=== PATIENT | male | born 1985 | race Caucasian/White ===

== ENCOUNTER 2016-09-15 10:00 | Day surgery (SDC) | payer MEDICAID ==
[~2016-09-15] VITALS: Ht 182.9 cm; Wt 81.0 kg
[~2016-09-15 10:00] MED LIST: BUPR-86 PO; DOXY100C15 PO; MESA500C PO; NA P133E5 RC; OMEP10CA4 PO; OMEP40CA6 PO; SUCR1TAB PO; TRAM50TA2 PO
[2016-09-15 10:45] VITALS: BP 147/88
[2016-09-15] MEDS ORDERED: LACTATED RINGERS 1,000 ML IV SCH (10:45)
[2016-09-15] MEDS ORDERED: PROPOFOL 10 MG/ML, 50ML ONE (12:16)
[2016-09-15] MEDS ORDERED: ACETAMINOPHEN 325 MG TABLET ONE (13:46)
[2016-09-15] MEDS ORDERED: ACETAMINOPHEN 325 MG TABLET PO ONE (14:00)
== END 2016-09-15 14:40 | disposition home or self-care (01) ==
LOC: OUT 10:00
PROVIDERS: ATTEND Internal Medicine Geriatric Medicine
DX: D12.3 Benign neoplasm of transverse colon (principal); K63.5 Polyp of colon; K52.9 Noninfective gastroenteritis and colitis, unspecified; K21.9 Gastro-esophageal reflux disease without esophagitis; K62.6 Ulcer of anus and rectum; M19.90 Unspecified osteoarthritis, unspecified site; F17.210 Nicotine dependence, cigarettes, uncomplicated
CPT/HCPCS: 45380; 45391; 88305; J2704; J7120

== ENCOUNTER 2016-10-10 16:59 | Emergency (ER) | payer MEDICAID ==
[~2016-10-10] VITALS: Ht 182.9 cm; Wt 84.2 kg
[2016-10-10] MEDS ORDERED: ONDANSETRON 2MG/ML, 2ML IVPush ONE (17:30)
[2016-10-10] MEDS ORDERED: MORPHINE SULFATE 4 MG/ML, 1ML IVPush PRN (17:30)
[2016-10-10] MEDS ORDERED: SODIUM CHLORIDE FLUSH 10ML SYR IVF ONE (17:30)
[2016-10-10] MEDS ORDERED: SODIUM CHLORIDE 0.9% 1,000ML IVBOLUS ONE (17:30)
[2016-10-10] MEDS ORDERED: MORPHINE SULFATE 4 MG/ML, 1ML ONE (17:54)
[2016-10-10] MEDS ORDERED: ONDANSETRON 2MG/ML, 2ML ONE (17:54)
[2016-10-10 17:57] LABS: HEMOGLOBIN 17.5 g/dL (13.7-18.0)
[2016-10-10 18:03] LABS: ASPARTATE AMINO TRANSFERASE 18 U/L (15-37); BLOOD UREA NITROGEN 13 mg/dL (7-18)
[2016-10-10] MEDS ORDERED: MESA0.37 PO (18:21)
[2016-10-10] MEDS ORDERED: AMIT25TA PO (18:21)
[2016-10-10] MEDS ORDERED: OMNIPAQUE 350 MG/ML, 100ML BOTTLE ONE (18:30)
[2016-10-10] MEDS ORDERED: HYDROmorphone 1 MG/ML, 1ML ONE (19:25)
[2016-10-10] MEDS ORDERED: HYDROmorphone 2 MG/ML, 1ML IVPush ONE (19:30)
[2016-10-10 20:01] VITALS: BP 128/90
[2016-10-13] MEDS ORDERED: HYDR-3240 PO (11:12)
[2016-10-13] MEDS ORDERED: ONDA4TAB10 PO (11:12)
== END 2016-10-10 20:04 | disposition home or self-care (01) ==
LOC: ED 19:55
DX: K51.90 Ulcerative colitis, unspecified, without complications (principal); K21.9 Gastro-esophageal reflux disease without esophagitis
CPT/HCPCS: 36415; 74177; 80053; 81003; 83690; 85025; 93005; 96361; 96374; 96375; 99285; J1170; J2405; J7030; Q9967

== ENCOUNTER 2016-10-12 09:30 | Emergency (ER) | payer MEDICAID ==
[~2016-10-12] VITALS: Ht 182.9 cm; Wt 83.6 kg
[~2016-10-12 09:30] MED LIST changes: +AMIT25TA PO; +MESA0.37 PO
[2016-10-12] MEDS ORDERED: SODIUM CHLORIDE 0.9% 1,000 ML IV ONE (09:52)
[2016-10-12] MEDS ORDERED: HYDROmorphone 1 MG/ML, 1ML ONE ×2 (09:58→11:12)
[2016-10-12] MEDS ORDERED: ONDANSETRON 2MG/ML, 2ML ONE (09:58)
[2016-10-12] MEDS ORDERED: SODIUM CHLORIDE 0.9% 1,000ML IVBOLUS ONE (10:00)
[2016-10-12] MEDS ORDERED: SODIUM CHLORIDE FLUSH 10ML SYR IVF ONE (10:00)
[2016-10-12] MEDS ORDERED: ONDANSETRON 2MG/ML, 2ML IVPush ONE (10:00)
[2016-10-12] MEDS: HYDROmorphone 1 MG/ML, 1ML IVPush PRN ×2 (10:14→11:16)
[2016-10-12 10:32] LABS: HEMOGLOBIN 17.7 g/dL (13.7-18.0)
[2016-10-12 10:42] LABS: ASPARTATE AMINO TRANSFERASE 22 U/L (15-37); BLOOD UREA NITROGEN 14 mg/dL (7-18)
[2016-10-12 12:00] VITALS: BP 145/91
[2016-10-13] MEDS ORDERED: ONDA4TAB10 PO (11:12)
[2016-10-13] MEDS ORDERED: HYDR-3240 PO (11:12)
[2016-10-15] MEDS ORDERED: NICO1PAT5 TD (07:00)
[2016-10-15] MEDS ORDERED: SUCR1ORA2 PO (07:00)
[2016-10-15] MEDS ORDERED: PRED10TA PO (07:00)
[2016-10-15] MEDS ORDERED: ONDA4TAB10 PO (07:17)
== END 2016-10-12 12:10 | disposition home or self-care (01) ==
LOC: ED 12:04
DX: K51.90 Ulcerative colitis, unspecified, without complications (principal); R10.84 Generalized abdominal pain; G89.29 Other chronic pain; K21.9 Gastro-esophageal reflux disease without esophagitis; F17.200 Nicotine dependence, unspecified, uncomplicated; F12.10 Cannabis abuse, uncomplicated
CPT/HCPCS: 36415; 80053; 81003; 83605; 83690; 85025; 96361; 96374; 96375; 96376; 99284; J1170; J2405; J7030

== ENCOUNTER 2016-10-21 17:36 | Emergency (ER) | payer MEDICAID ==
[~2016-10-21] VITALS: Ht 182.9 cm; Wt 83.9 kg
[~2016-10-21 17:36] MED LIST changes: +HYDR-3240 PO; +NICO1PAT5 TD; +ONDA4TAB10 PO; +PRED10TA PO; +SUCR1ORA2 PO
[2016-10-21] MEDS ORDERED: ASPIRIN 325 MG TABLET PO ONE (18:30)
[2016-10-21] MEDS ORDERED: SODIUM CHLORIDE FLUSH 10ML SYR IVF ONE (18:30)
[2016-10-21] MEDS ORDERED: SODIUM CHLORIDE 0.9% 1,000ML IVBOLUS ONE (18:30)
[2016-10-21] MEDS ORDERED: ASPIRIN 325 MG TABLET ONE (18:38)
[2016-10-21 18:41] LABS: HEMOGLOBIN 17.4 g/dL (13.7-18.0)
[2016-10-21] MEDS ORDERED: ONDANSETRON 2MG/ML, 2ML ONE (18:46)
[2016-10-21 18:54] LABS: ASPARTATE AMINO TRANSFERASE 10 U/L (15-37); BLOOD UREA NITROGEN 15 mg/dL (7-18)
[2016-10-21] MEDS ORDERED: ONDANSETRON 2MG/ML, 2ML IVPush ONE (19:00)
[2016-10-21 19:06] LABS: IS PT STATUS REG ER OR PRE ER? YES
[2016-10-21 19:55] VITALS: BP 135/87
== END 2016-10-21 19:57 | disposition home or self-care (01) ==
LOC: ED 19:54
DX: R00.0 Tachycardia, unspecified (principal); Z88.2 Allergy status to sulfonamides
CPT/HCPCS: 36415; 71010; 80053; 83735; 84439; 84443; 84484; 85025; 85379; 93005; 96361; 96374; 99285; J2405; J7030

== ENCOUNTER 2016-10-31 16:19 | Emergency (ER) | payer MEDICAID ==
[~2016-10-31] VITALS: Ht 182.9 cm; Wt 83.6 kg
[2016-10-31 17:39] LABS: BLOOD UREA NITROGEN 7 mg/dL (7-18)
[2016-10-31] MEDS ORDERED: methylPREDNISolone SOD SUCC 125 MG/2 ML IVPush ONE (18:30)
[2016-10-31] MEDS ORDERED: MORPHINE SULFATE 4 MG/ML, 1ML IVPush ONE (18:30)
[2016-10-31] MEDS ORDERED: ONDANSETRON 2MG/ML, 2ML IVPush ONE (18:30)
[2016-10-31] MEDS ORDERED: methylPREDNISolone SOD SUCC 125 MG/2 ML ONE (19:10)
[2016-10-31] MEDS ORDERED: MORPHINE SULFATE 4 MG/ML, 1ML ONE (19:10)
[2016-10-31] MEDS ORDERED: ONDANSETRON 2MG/ML, 2ML ONE (19:10)
[2016-10-31] MEDS ORDERED: SODIUM CHLORIDE 0.9% 1,000ML IVBOLUS ONE (19:30)
[2016-10-31 20:44] VITALS: BP 132/86
== END 2016-10-31 20:47 | disposition home or self-care (01) ==
LOC: ED 20:30
DX: R10.31 Right lower quadrant pain (principal); K21.9 Gastro-esophageal reflux disease without esophagitis
CPT/HCPCS: 36415; 80048; 82040; 85025; 85651; 96361; 96374; 96375; 99284; J2405; J2930; J7030

== ENCOUNTER 2016-11-07 16:19 | Emergency (ER) | payer MEDICAID ==
[~2016-11-07] VITALS: Ht 182.9 cm; Wt 85.5 kg
[2016-11-07] MEDS ORDERED: SODIUM CHLORIDE 0.9% 1,000ML IVBOLUS ONE (17:00)
[2016-11-07] MEDS ORDERED: LORazepam 2 MG/ML, 1ML IVPush ONE (17:00)
[2016-11-07] MEDS ORDERED: SODIUM CHLORIDE FLUSH 10ML SYR IVF ONE (17:00)
[2016-11-07 17:01] LABS: BLOOD UREA NITROGEN 12 mg/dL (7-18)
[2016-11-07] MEDS ORDERED: LORazepam 2 MG/ML, 1ML ONE (18:08)
[2016-11-07] MEDS ORDERED: KETOROLAC 30 MG/1 ML ONE (18:51)
[2016-11-07] MEDS ORDERED: KETOROLAC 30 MG/1 ML IM ONE (19:00)
[2016-11-07 19:24] VITALS: BP 129/76
[2016-11-07] MEDS ORDERED: KETOROLAC 30 MG/1 ML IVPush ONE (19:30)
== END 2016-11-07 19:27 | disposition home or self-care (01) ==
LOC: ED 19:00
DX: R07.89 Other chest pain (principal)
CPT/HCPCS: 36415; 71020; 80048; 82040; 85025; 93005; 96361; 96372; 96374; 99285; J1885; J2060; J7030

== ENCOUNTER 2016-11-08 09:34 | Emergency (ER) | payer MEDICAID ==
[~2016-11-08] VITALS: Ht 182.9 cm; Wt 85.8 kg
[2016-11-08] MEDS ORDERED: KETOROLAC 30 MG/1 ML IVPush ONE (11:00)
[2016-11-08] MEDS ORDERED: SODIUM CHLORIDE FLUSH 10ML SYR IVF ONE (11:00)
[2016-11-08] MEDS ORDERED: KETOROLAC 30 MG/1 ML ONE (11:36)
[2016-11-08 11:38] LABS: BLOOD UREA NITROGEN 14 mg/dL (7-18)
[2016-11-08 11:44] LABS: IS PT STATUS REG ER OR PRE ER? YES
[2016-11-08] MEDS ORDERED: OMNIPAQUE 350 MG/ML, 100ML BOTTLE ONE (11:55)
[2016-11-08 13:11] VITALS: BP 139/87
== END 2016-11-08 13:13 | disposition home or self-care (01) ==
LOC: ED 11:07
DX: R07.89 Other chest pain (principal); K21.9 Gastro-esophageal reflux disease without esophagitis; Z88.2 Allergy status to sulfonamides; Z88.8 Allergy status to other drugs, medicaments and biological substances
CPT/HCPCS: 36415; 71275; 80048; 82040; 84484; 85025; 93005; 96374; 99285; J1885; Q9967

== ENCOUNTER → 2016-11-17 | Outpatient (CLI) | payer MEDICAID | END | disposition home or self-care (01) | LOC: CFH 14:32 | PROVIDERS: ATTEND Internal Medicine Cardiovascular Disease | DX: I34.0 Nonrheumatic mitral (valve) insufficiency (principal); I37.1 Nonrheumatic pulmonary valve insufficiency | CPT/HCPCS: 93306 ==

== ENCOUNTER 2017-02-09 10:42 | Emergency (ER) | payer MEDICAID ==
[~2017-02-09] VITALS: Ht 182.9 cm; Wt 85.5 kg
[2017-02-09] MEDS ORDERED: SODIUM CHLORIDE 0.9% 1,000 ML IV ONE (11:27)
[2017-02-09] MEDS ORDERED: ONDANSETRON 2MG/ML, 2ML IVPush ONE (11:30)
[2017-02-09] MEDS ORDERED: SODIUM CHLORIDE FLUSH 10ML SYR IVF ONE (11:30)
[2017-02-09] MEDS ORDERED: SODIUM CHLORIDE 0.9% 1,000ML IVBOLUS ONE (11:30)
[2017-02-09] MEDS ORDERED: HYDROmorphone 1 MG/ML, 1ML ONE ×2 (11:33→13:07)
[2017-02-09] MEDS ORDERED: ONDANSETRON 2MG/ML, 2ML ONE (11:33)
[2017-02-09] MEDS: HYDROmorphone 1 MG/ML, 1ML IVPush PRN ×2 (12:05→13:05)
[2017-02-09 12:31] LABS: HEMATOCRIT 48.7 % (39.2-51.8); HEMOGLOBIN 16.6 g/dL (13.7-18.0)
[2017-02-09 12:41] LABS: ASPARTATE AMINO TRANSFERASE 20 U/L (15-37); BLOOD UREA NITROGEN 9 mg/dL (7-18)
[2017-02-09 13:01] VITALS: BP 122/80
== END 2017-02-09 14:19 | disposition home or self-care (01) ==
LOC: ED 11:34
DX: K50.10 Crohn's disease of large intestine without complications (principal); K21.9 Gastro-esophageal reflux disease without esophagitis; Z88.2 Allergy status to sulfonamides
CPT/HCPCS: 36415; 73502; 74022; 80053; 81003; 83605; 83690; 85025; 96361; 96374; 96375; 96376; 99285; J1170; J2405; J7030

== ENCOUNTER 2017-02-16 10:44 | Emergency (ER) | payer MEDICAID ==
[~2017-02-16] VITALS: Ht 182.9 cm; Wt 88.1 kg
[2017-02-16 11:28] VITALS: BP 129/79
[2017-02-16] MEDS ORDERED: HYDROmorphone 1 MG/ML, 1ML IM ONE (11:30)
[2017-02-16] MEDS ORDERED: DIAZEPAM 5 MG TABLET PO ONE (11:30)
[2017-02-16] MEDS ORDERED: KETOROLAC 30 MG/1 ML IM ONE (11:30)
[2017-02-16] MEDS ORDERED: HYDROmorphone 1 MG/ML, 1ML ONE (11:34)
[2017-02-16] MEDS ORDERED: KETOROLAC 30 MG/1 ML ONE (11:35)
[2017-02-16] MEDS ORDERED: DIAZEPAM 5 MG TABLET ONE (11:35)
== END 2017-02-16 13:26 | disposition home or self-care (01) ==
LOC: ED 11:07
DX: S39.012A Strain of muscle, fascia and tendon of lower back, initial encounter (principal); S76.012A Strain of muscle, fascia and tendon of left hip, initial encounter; S76.112A Strain of left quadriceps muscle, fascia and tendon, initial encounter; S76.312A Strain of muscle, fascia and tendon of the posterior muscle group at thigh level, left thigh, initial encounter; K21.9 Gastro-esophageal reflux disease without esophagitis; Z88.8 Allergy status to other drugs, medicaments and biological substances; Z88.2 Allergy status to sulfonamides; X58.XXXA Exposure to other specified factors, initial encounter; Y93.89 Activity, other specified; Y92.89 Other specified places as the place of occurrence of the external cause; Y99.8 Other external cause status
CPT/HCPCS: 72148; 96372; 99284; J1170; J1885

== ENCOUNTER 2017-03-12 12:19 | Emergency (ER) | payer MEDICAID ==
[~2017-03-12] VITALS: Ht 182.9 cm; Wt 86.7 kg
[~2017-03-12 12:19] MED LIST changes: -MESA0.37 PO; +MESA0.372 PO; +NICO1PAT16 TD; -NICO1PAT5 TD; -SUCR1ORA2 PO; +SUCR1ORA5 PO
[2017-03-12] MEDS ORDERED: ACETAMINOPHEN 500 MG TABLET PO ONE (14:30)
[2017-03-12 14:37] LABS: HEMATOCRIT 50.1 % (39.2-51.8); HEMOGLOBIN 17.3 g/dL (13.7-18.0); WHITE BLOOD COUNT 6.7 x10^3/uL (3.4-10)
[2017-03-12 14:44] LABS: ASPARTATE AMINO TRANSFERASE 11 U/L (15-37); BLOOD UREA NITROGEN 10 mg/dL (7-18)
[2017-03-12 16:11] VITALS: BP 116/66
== END 2017-03-12 16:13 | disposition home or self-care (01) ==
LOC: ED 16:00
DX: K62.5 Hemorrhage of anus and rectum (principal); R10.32 Left lower quadrant pain
CPT/HCPCS: 36415; 80053; 85025; 99284

== ENCOUNTER 2017-03-18 11:29 | Emergency (ER) | payer MEDICAID ==
[~2017-03-18] VITALS: Ht 182.9 cm; Wt 86.5 kg
[2017-03-18 11:32] VITALS: BP 137/87
== END 2017-03-18 12:47 | disposition home or self-care (01) ==
LOC: ED 12:06
DX: S90.31XA Contusion of right foot, initial encounter (principal); F17.200 Nicotine dependence, unspecified, uncomplicated; K21.9 Gastro-esophageal reflux disease without esophagitis; K50.90 Crohn's disease, unspecified, without complications; W61.92XA Struck by other birds, initial encounter; Y93.89 Activity, other specified; Y92.89 Other specified places as the place of occurrence of the external cause; Y99.8 Other external cause status
CPT/HCPCS: 99284

== ENCOUNTER 2017-04-18 10:15 | Emergency (ER) | payer MEDICAID ==
[~2017-04-18] VITALS: Ht 182.9 cm; Wt 87.3 kg
[~2017-04-18 10:15] MED LIST changes: +NICO-487 TD; -NICO1PAT16 TD
[2017-04-18] MEDS ORDERED: SODIUM CHLORIDE FLUSH 10ML SYR IVF ONE (11:00)
[2017-04-18] MEDS ORDERED: ONDANSETRON 2MG/ML, 2ML IVPush ONE (11:00)
[2017-04-18] MEDS ORDERED: SODIUM CHLORIDE 0.9% 1,000ML IVBOLUS ONE (11:00)
[2017-04-18] MEDS ORDERED: MAALOX/HYOSCYAMINE/LIDOCAINE 45 ML BTL PO ONE (11:00)
[2017-04-18] MEDS ORDERED: MORPHINE SULFATE 4 MG/ML, 1ML IVPush PRN (11:00)
[2017-04-18] MEDS ORDERED: FAMOTIDINE 20 MG/2 ML IVP ONE (11:00)
[2017-04-18 11:14] LABS: HEMATOCRIT 51.4 % (39.2-51.8); HEMOGLOBIN 17.9 g/dL (13.7-18.0); WHITE BLOOD COUNT 7.2 x10^3/uL (3.4-10)
[2017-04-18] MEDS ORDERED: MAALOX/HYOSCYAMINE/LIDOCAINE 45 ML BTL ONE (11:16)
[2017-04-18] MEDS ORDERED: ONDANSETRON 2MG/ML, 2ML ONE (11:16)
[2017-04-18] MEDS ORDERED: FAMOTIDINE 20 MG/2 ML ONE (11:17)
[2017-04-18] MEDS ORDERED: morphine SULFATE 10 MG/ML, 1ML ONE (11:19)
[2017-04-18 11:28] LABS: ASPARTATE AMINO TRANSFERASE 17 U/L (15-37); BLOOD UREA NITROGEN 10 mg/dL (7-18)
[2017-04-18 11:40] LABS: IS PT STATUS REG ER OR PRE ER? YES
[2017-04-18 13:02] VITALS: BP 136/77
== END 2017-04-18 13:04 | disposition home or self-care (01) ==
LOC: ED 11:58
DX: R10.11 Right upper quadrant pain (principal); G89.29 Other chronic pain; K21.9 Gastro-esophageal reflux disease without esophagitis
CPT/HCPCS: 36415; 74022; 80053; 83690; 84484; 85025; 85610; 85730; 93005; 96361; 96374; 96375; 99285; J2405; J7030; S0028

== ENCOUNTER 2017-04-22 11:14 | Inpatient (IN) | payer MEDICAID ==
[~2017-04-22] VITALS: Ht 182.9 cm; Wt 85.8 kg
[2017-04-22] MEDS ORDERED: SODIUM CHLORIDE 0.9% 1,000 ML IV ONE (11:32)
[2017-04-22] MEDS ORDERED: ONDANSETRON 2MG/ML, 2ML ONE (11:59)
[2017-04-22] MEDS ORDERED: FAMOTIDINE 20 MG/2 ML ONE (11:59)
[2017-04-22] MEDS ORDERED: SODIUM CHLORIDE 0.9% 1,000ML IVBOLUS ONE (12:00)
[2017-04-22] MEDS ORDERED: ONDANSETRON 2MG/ML, 2ML IVPush ONE (12:00)
[2017-04-22] MEDS ORDERED: FAMOTIDINE 20 MG/2 ML IVP ONE (12:00)
[2017-04-22 12:07] LABS: ASPARTATE AMINO TRANSFERASE 13 U/L (15-37); BLOOD UREA NITROGEN 14 mg/dL (7-18)
[2017-04-22 12:14] LABS: HEMATOCRIT 51.7 % (39.2-51.8); HEMOGLOBIN 18.1 g/dL (13.7-18.0); WHITE BLOOD COUNT 5.6 x10^3/uL (3.4-10)
[2017-04-22] MEDS ORDERED: HYDROmorphone 1 MG/ML, 1ML IV ONE (12:30)
[2017-04-22] MEDS ORDERED: KETOROLAC 30 MG/1 ML ONE (12:48)
[2017-04-22] MEDS ORDERED: KETOROLAC 30 MG/1 ML IVPush ONE (13:00)
[2017-04-22] MEDS ORDERED: OMNIPAQUE 350 MG/ML, 100ML BOTTLE ONE ×2 (13:12→15:59)
[2017-04-22] MEDS ORDERED: morphine SULFATE 10 MG/ML, 1ML ONE ×2 (14:15→15:58)
[2017-04-22] MEDS: MORPHINE SULFATE 4 MG/ML, 1ML IVPush PRN ×2 (14:21→16:01)
[2017-04-22] MEDS ORDERED: HEPARIN 5,000 UNITS/ML, 1ML ONE (15:58)
[2017-04-22] MEDS ORDERED: HEPARIN 25,000 UNITS/500ML PMX 500 ML ONE (15:58)
[2017-04-22] MEDS ORDERED: HEPARIN 5,000 UNITS/ML, 1ML IV ONE (16:00)
[2017-04-22] MEDS ORDERED: HEPARIN 25,000 UNITS/500ML PMX 500 ML IV PRN (16:00)
[2017-04-22] MEDS ORDERED: HEPARIN 5,000 UNITS/ML, 1ML IV PRN (16:00)
[2017-04-22] MEDS ORDERED: ONDANSETRON 2MG/ML, 2ML IVPush PRN (17:00)
[2017-04-22] MEDS ORDERED: DO NOT GIVE XX SCH (17:00)
[2017-04-22 20:00] VITALS: BP 125/82
[2017-04-22] MEDS: methylPREDNISolone SOD SUCC 40 MG/ML IVPush SCH (20:08)
[2017-04-22] MEDS: NS + 20MEQ KCL 1,000 ML IV SCH (20:08)
[2017-04-22] MEDS: morphine SULFATE 10 MG/ML, 1ML IVPush PRN (20:08)
[2017-04-22] MEDS: LEVOFLOXACIN/PMX 750MG/150ML 150 ML IV SCH (20:09)
[2017-04-22] MEDS: NICOTINE 21 MG/24 HR PATCH.TD24 TD SCH (20:10)
[2017-04-22 23:48] VITALS: BP 142/88
[2017-04-23 02:00] VITALS: BP 124/66
[2017-04-23] MEDS: methylPREDNISolone SOD SUCC 40 MG/ML IVPush SCH ×4 (02:40→20:04)
[2017-04-23] MEDS: morphine SULFATE 10 MG/ML, 1ML IVPush PRN ×5 (02:58→20:04)
[2017-04-23] MEDS ORDERED: FLU VACC QS2017-18 (36MOS+) UP/PF 0.5 ML IM-VACC ONE (04:30)
[2017-04-23] MEDS: NS + 20MEQ KCL 1,000 ML IV SCH ×3 (04:58→23:14)
[2017-04-23 05:43] LABS: HEMATOCRIT 48.6 % (39.2-51.8); HEMOGLOBIN 16.9 g/dL (13.7-18.0); WHITE BLOOD COUNT 4.4 x10^3/uL (3.4-10)
[2017-04-23 05:45] LABS: BLOOD UREA NITROGEN 14 mg/dL (7-18)
[2017-04-23 06:42] VITALS: BP 110/63
[2017-04-23] MEDS: PANTOPRAZOLE 40 MG IV IVPush SCH (09:16)
[2017-04-23] MEDS ORDERED: HEPARIN 5,000 UNITS/ML, 1ML IV PRN ×2 (12:30→13:00)
[2017-04-23] MEDS: HEPARIN 25,000 UNITS/500ML PMX 500 ML IV PRN (13:02)
[2017-04-23] MEDS ORDERED: morphine SULFATE 10 MG/ML, 1ML IVPush ONE (13:30)
[2017-04-23 14:00] VITALS: BP 112/79
[2017-04-23] MEDS: LEVOFLOXACIN/PMX 750MG/150ML 150 ML IV SCH (16:57)
[2017-04-23] MEDS: NICOTINE 21 MG/24 HR PATCH.TD24 TD SCH (16:58)
[2017-04-23 20:18] VITALS: BP 136/81
[2017-04-23] MEDS ORDERED: DIPHENHYDRAMINE 50 MG/ML, 1ML IVPush ONE (21:00)
[2017-04-24] MEDS: morphine SULFATE 10 MG/ML, 1ML IVPush PRN ×2 (01:05→08:56)
[2017-04-24] MEDS: methylPREDNISolone SOD SUCC 40 MG/ML IVPush SCH ×2 (02:18→08:41)
[2017-04-24 03:00] VITALS: BP 119/66
[2017-04-24 05:19] LABS: HEMATOCRIT 45.9 % (39.2-51.8); WHITE BLOOD COUNT 7.5 x10^3/uL (3.4-10)
[2017-04-24 05:35] LABS: BLOOD UREA NITROGEN 11 mg/dL (7-18)
[2017-04-24] MEDS: HEPARIN 25,000 UNITS/500ML PMX 500 ML IV PRN (06:42)
[2017-04-24] MEDS: NS + 20MEQ KCL 1,000 ML IV SCH (07:21)
[2017-04-24 07:55] VITALS: BP 114/67
[2017-04-24] MEDS: PANTOPRAZOLE 40 MG IV IVPush SCH (08:41)
[2017-04-24] MEDS ORDERED: ONDANSETRON ODT 4 MG PO PRN (11:30)
[2017-04-24] MEDS ORDERED: AMITRIPTYLINE 25 MG TABLET PO SCH (21:00)
[2017-04-25] MEDS ORDERED: MESALAMINE PO SCH (09:00)
[2017-04-25] MEDS ORDERED: OMEPRAZOLE 20 MG CAPSULE.DR PO SCH (09:00)
== END 2017-04-24 11:51 | disposition left against medical advice (07) | DRG 442 ==
LOC: ED 11:50 → EDIP 16:05 → 3NE 17:20
PROVIDERS: ADMIT Hospitalist; ATTEND Hospitalist
DX: I81 Portal vein thrombosis (principal); K50.90 Crohn's disease, unspecified, without complications; F12.90 Cannabis use, unspecified, uncomplicated; G89.29 Other chronic pain; K21.9 Gastro-esophageal reflux disease without esophagitis
CPT/HCPCS: 36415; 71010; 74174; 74177; 80048; 80053; 80061; 81003; 83605; 83690; 84439; 84443; 85025; 85379; 85520; 85610; 85730; 90686; 96361; 96365; 96375; 96376; J1644; J1885; J1956; J2405; J3480; Q9967; C9113; J1200; J2270; J2920; J7030; S0028

== ENCOUNTER 2017-05-31 14:12 | Emergency (ER) | payer MEDICAID ==
[~2017-05-31] VITALS: Ht 177.8 cm; Wt 88.4 kg
[2017-05-31 14:14] VITALS: BP 130/84
[2017-05-31] MEDS ORDERED: DIAZEPAM 5 MG TABLET ONE (14:52)
[2017-05-31] MEDS ORDERED: KETOROLAC 30 MG/1 ML ONE (14:52)
[2017-05-31] MEDS ORDERED: KETOROLAC 30 MG/1 ML IM ONE (15:00)
[2017-05-31] MEDS ORDERED: DIAZEPAM 5 MG TABLET PO ONE (15:00)
== END 2017-05-31 16:13 ==
LOC: ED 16:09
DX: S39.012A Strain of muscle, fascia and tendon of lower back, initial encounter (principal); S40.011A Contusion of right shoulder, initial encounter; K21.9 Gastro-esophageal reflux disease without esophagitis; M19.90 Unspecified osteoarthritis, unspecified site; X50.0XXA Overexertion from strenuous movement or load, initial encounter; Y93.89 Activity, other specified; Y92.89 Other specified places as the place of occurrence of the external cause; Y99.8 Other external cause status
CPT/HCPCS: 72110; 73030; 96372; 99284; J1885

== ENCOUNTER 2017-06-18 12:52 | Emergency (ER) | payer MEDICAID ==
[~2017-06-18] VITALS: Ht 182.9 cm; Wt 88.4 kg
[2017-06-18] MEDS ORDERED: SODIUM CHLORIDE 0.9% 1,000ML IVBOLUS ONE (13:30)
[2017-06-18] MEDS ORDERED: SODIUM CHLORIDE FLUSH 10ML SYR IVF ONE (13:30)
[2017-06-18 13:36] LABS: HEMATOCRIT 52.9 % (39.2-51.8); HEMOGLOBIN 18.2 g/dL (13.7-18.0)
[2017-06-18 13:48] LABS: BLOOD UREA NITROGEN 10 mg/dL (7-18)
[2017-06-18 13:52] LABS: ASPARTATE AMINO TRANSFERASE 16 U/L (15-37)
[2017-06-18] MEDS ORDERED: OXYcodone/APAP 5/325MG TABLET PO ONE (15:00)
[2017-06-18] MEDS ORDERED: PROMETHAZINE 25 MG/ML, 1ML IM ONE (15:00)
[2017-06-18] MEDS ORDERED: OXYcodone/APAP 5/325MG TABLET ONE (15:06)
[2017-06-18] MEDS ORDERED: PROMETHAZINE 25 MG/ML, 1ML ONE (15:06)
[2017-06-18 16:08] VITALS: BP 129/80
== END 2017-06-18 16:15 | disposition home or self-care (01) ==
LOC: ED 16:14
DX: R10.30 Lower abdominal pain, unspecified (principal); K50.90 Crohn's disease, unspecified, without complications; K21.9 Gastro-esophageal reflux disease without esophagitis; M19.90 Unspecified osteoarthritis, unspecified site; Z88.1 Allergy status to other antibiotic agents; Z88.2 Allergy status to sulfonamides
CPT/HCPCS: 36415; 80053; 81003; 83690; 85025; 96372; 99284; J2550

== ENCOUNTER 2017-08-16 17:34 | Emergency (ER) | payer MEDICAID ==
[~2017-08-16] VITALS: Ht 182.9 cm; Wt 87.0 kg
[2017-08-16 17:50] VITALS: BP 144/88
== END 2017-08-16 19:11 | disposition home or self-care (01) ==
LOC: ED 18:19
DX: S62.661A Nondisplaced fracture of distal phalanx of left index finger, initial encounter for closed fracture (principal); K21.9 Gastro-esophageal reflux disease without esophagitis; X58.XXXA Exposure to other specified factors, initial encounter; Y93.89 Activity, other specified; Y99.8 Other external cause status; Y92.89 Other specified places as the place of occurrence of the external cause
CPT/HCPCS: 29130; 99284

== ENCOUNTER 2017-09-21 11:50 | Emergency (ER) | payer MEDICAID ==
[~2017-09-21] VITALS: Ht 182.9 cm; Wt 85.8 kg
[2017-09-21 12:28] LABS: BASOPHILS # (AUTO) 0.07 x10^3/uL (0-0.1); BASOPHILS % (AUTO) 1 % (0-1); EOSINOPHILS # (AUTO) 0.11 x10^3/uL (0-0.4); EOSINOPHILS % (AUTO) 2 % (1-7); LYMPHOCYTES # (AUTO) 2.15 x10^3/uL (1-3.4); LYMPHOCYTES % (AUTO) 37 % (22-44); MD NO; MEAN CORPUSCULAR HEMOGLOBIN 31.5 pg (27.5-34.5); MEAN CORPUSCULAR HGB CONC 34.6 g/dL (33.2-36.2); MEAN CORPUSCULAR VOLUME 91.3 fL (81-97); MEAN PLATELET VOLUME 8.3 fL (7.4-10.4); MONOCYTES # (AUTO) 0.55 x10^3/uL (0.2-0.8); MONOCYTES % (AUTO) 9 % (2-9); NEUTROPHILS # (AUTO) 2.98 x10^3/uL (1.8-6.8); NEUTROPHILS % (AUTO) 51 % (42-75); PLATELET COUNT 221 x10^3/uL (130-400); RED BLOOD COUNT 5.76 x10^6/uL (4.38-5.82); RED CELL DISTRIBUTION WIDTH 13.3 % (9.4-14.8)
[2017-09-21] MEDS ORDERED: METOCLOPRAMIDE 5 MG/ML, 2ML IVPush ONE (12:30)
[2017-09-21] MEDS ORDERED: DIPHENHYDRAMINE 50 MG/ML, 1ML IVPush ONE (12:30)
[2017-09-21] MEDS ORDERED: SODIUM CHLORIDE 0.9% 1,000ML IVBOLUS ONE (12:30)
[2017-09-21] MEDS ORDERED: morphine SULFATE 10 MG/ML, 1ML IVPush ONE ×2 (12:30→14:30)
[2017-09-21] MEDS ORDERED: SODIUM CHLORIDE FLUSH 10ML SYR IVF ONE (12:30)
[2017-09-21] MEDS ORDERED: METOCLOPRAMIDE 5 MG/ML, 2ML ONE (12:36)
[2017-09-21] MEDS ORDERED: MORPHINE SULFATE 4 MG/ML, 1ML ONE ×2 (12:36→14:27)
[2017-09-21] MEDS ORDERED: DIPHENHYDRAMINE 50 MG/ML, 1ML ONE (12:36)
[2017-09-21 12:39] LABS: ALANINE AMINOTRANSFERASE 26 U/L (12-78); ANION GAP 6 mmol/L (5-15); CALCIUM 8.9 mg/dL (8.5-10.1); CHLORIDE 110 mmol/L (98-107); CREATININE 0.92 mg/dL (0.7-1.3)
[2017-09-21 12:41] LABS: ALKALINE PHOSPHATASE 76 U/L (45-117); BILIRUBIN,TOTAL 0.4 mg/dL (0.2-1.0); TOTAL PROTEIN 7.2 g/dL (6.4-8.2)
[2017-09-21 12:53] LABS: MICROSCOPIC NOT IND
[2017-09-21 13:11] LABS: CULTURE INDICATED? NO
[2017-09-21] MEDS ORDERED: OMNIPAQUE 350 MG/ML, 100ML BOTTLE ONE (14:11)
[2017-09-21 15:03] VITALS: BP 137/85
== END 2017-09-21 15:06 | disposition home or self-care (01) ==
LOC: ED 14:43
DX: K50.10 Crohn's disease of large intestine without complications (principal); K21.9 Gastro-esophageal reflux disease without esophagitis
CPT/HCPCS: 36415; 74177; 80053; 81003; 83690; 85025; 96361; 96374; 96375; 96376; 99285; J1200; J2270; J2765; J7030; Q9967

== ENCOUNTER 2017-10-13 17:18 | Emergency (ER) | payer MEDICAID ==
[~2017-10-13] VITALS: Ht 182.9 cm; Wt 84.3 kg
[2017-10-13] MEDS ORDERED: METOCLOPRAMIDE 5 MG/ML, 2ML IVPush ONE (18:00)
[2017-10-13] MEDS ORDERED: MORPHINE SULFATE 4 MG/ML, 1ML ONE (18:00)
[2017-10-13] MEDS ORDERED: MORPHINE SULFATE 4 MG/ML, 1ML IVPush PRN (18:00)
[2017-10-13] MEDS ORDERED: SODIUM CHLORIDE FLUSH 10ML SYR IVF ONE (18:00)
[2017-10-13] MEDS ORDERED: METOCLOPRAMIDE 5 MG/ML, 2ML ONE (18:00)
[2017-10-13 18:22] LABS: BASOPHILS # (AUTO) 0.08 x10^3/uL (0-0.1); BASOPHILS % (AUTO) 1 % (0-1); EOSINOPHILS # (AUTO) 0.09 x10^3/uL (0-0.4); EOSINOPHILS % (AUTO) 1 % (1-7); LYMPHOCYTES # (AUTO) 2.08 x10^3/uL (1-3.4); LYMPHOCYTES % (AUTO) 31 % (22-44); MD NO; MEAN CORPUSCULAR HEMOGLOBIN 31.5 pg (27.5-34.5); MEAN CORPUSCULAR HGB CONC 34.4 g/dL (33.2-36.2); MEAN CORPUSCULAR VOLUME 91.5 fL (81-97); MEAN PLATELET VOLUME 8.2 fL (7.4-10.4); MONOCYTES # (AUTO) 0.64 x10^3/uL (0.2-0.8); MONOCYTES % (AUTO) 10 % (2-9); NEUTROPHILS # (AUTO) 3.77 x10^3/uL (1.8-6.8); NEUTROPHILS % (AUTO) 57 % (42-75); PLATELET COUNT 265 x10^3/uL (130-400); RED BLOOD COUNT 5.63 x10^6/uL (4.38-5.82); RED CELL DISTRIBUTION WIDTH 13.4 % (9.4-14.8)
[2017-10-13 18:29] LABS: MICROSCOPIC NOT IND
[2017-10-13 18:32] LABS: ALANINE AMINOTRANSFERASE 28 U/L (12-78); ANION GAP 6 mmol/L (5-15); CALCIUM 8.7 mg/dL (8.5-10.1); CHLORIDE 112 mmol/L (98-107); CREATININE 0.81 mg/dL (0.7-1.3)
[2017-10-13 18:33] LABS: CULTURE INDICATED? NO
[2017-10-13 18:34] LABS: ALKALINE PHOSPHATASE 69 U/L (45-117); BILIRUBIN,TOTAL 0.5 mg/dL (0.2-1.0); TOTAL PROTEIN 7.3 g/dL (6.4-8.2)
[2017-10-13 20:04] VITALS: BP 122/71
== END 2017-10-13 20:08 | disposition home or self-care (01) ==
LOC: ED 19:15
DX: R10.31 Right lower quadrant pain (principal); R11.2 Nausea with vomiting, unspecified; R42 Dizziness and giddiness; M19.90 Unspecified osteoarthritis, unspecified site; K21.9 Gastro-esophageal reflux disease without esophagitis; K50.90 Crohn's disease, unspecified, without complications
CPT/HCPCS: 36415; 80053; 81003; 83690; 85025; 93005; 96374; 96375; 99285; J2765

== ENCOUNTER 2018-01-21 08:17 | Emergency (ER) | payer MEDICAID ==
[~2018-01-21] VITALS: Ht 180.3 cm; Wt 80.4 kg
[2018-01-21 09:41] LABS: BASOPHILS # (AUTO) 0.04 x10^3/uL (0-0.1); BASOPHILS % (AUTO) 1 % (0-1); EOSINOPHILS # (AUTO) 0.07 x10^3/uL (0-0.4); EOSINOPHILS % (AUTO) 1 % (1-7); LYMPHOCYTES # (AUTO) 1.57 x10^3/uL (1-3.4); LYMPHOCYTES % (AUTO) 31 % (22-44); MD NO; MEAN CORPUSCULAR HEMOGLOBIN 32.1 pg (27.5-34.5); MEAN CORPUSCULAR HGB CONC 34.2 g/dL (33.2-36.2); MEAN CORPUSCULAR VOLUME 93.9 fL (81-97); MONOCYTES # (AUTO) 0.52 x10^3/uL (0.2-0.8); MONOCYTES % (AUTO) 10 % (2-9); NEUTROPHILS # (AUTO) 2.97 x10^3/uL (1.8-6.8); NEUTROPHILS % (AUTO) 58 % (42-75); PLATELET COUNT 217 x10^3/uL (130-400); RED BLOOD COUNT 5.34 x10^6/uL (4.38-5.82); RED CELL DISTRIBUTION WIDTH 12.9 % (9.4-14.8)
[2018-01-21 09:51] LABS: ALANINE AMINOTRANSFERASE 19 U/L (12-78); ALBUMIN 3.9 g/dL (3.4-5.0); ANION GAP 6 mmol/L (5-15); CALCIUM 8.5 mg/dL (8.5-10.1); CHLORIDE 115 mmol/L (98-107)
[2018-01-21 09:53] LABS: CULTURE INDICATED? NO; MICROSCOPIC NOT IND
[2018-01-21 09:53] LABS: CREATININE 0.75 mg/dL (0.7-1.3)
[2018-01-21 09:54] LABS: ALKALINE PHOSPHATASE 66 U/L (45-117); BILIRUBIN,TOTAL 0.5 mg/dL (0.2-1.0); TOTAL PROTEIN 6.7 g/dL (6.4-8.2)
[2018-01-21 10:46] VITALS: BP 108/69
== END 2018-01-21 10:48 | disposition home or self-care (01) ==
LOC: ED 10:21
DX: R10.84 Generalized abdominal pain (principal); K21.9 Gastro-esophageal reflux disease without esophagitis; F17.210 Nicotine dependence, cigarettes, uncomplicated
CPT/HCPCS: 36415; 80053; 81003; 83690; 85025; 99284